=== PATIENT | male | born 1970 | race Caucasian/White ===

== ENCOUNTER 2022-03-31 12:29 | Emergency (ER) | payer OTHER, SELFPAY ==
[2022-03-31] VITALS (12 sets, daily range): BP systolic 112–156; BP diastolic 78–88; PULSE 60–79; RESP 16–27; TEMP 36.6; O2SAT 94–100; BMI 29.9
--- NOTE | 2022-03-31 12:30 | DI.RAD.S_ITS ---
PROCEDURE: XR KNEE RT 3V INDICATIONS: fall TECHNIQUE: Three views of the knee were acquired. COMPARISON: None. FINDINGS: Bones: There is a mildly depressed comminuted fracture of the lateral tibial plateau. No suspicious bony lesions. Soft tissues: Moderate joint effusion with possible fat-fluid level. No suspicious soft tissue calcifications. IMPRESSION: Mildly depressed comminuted fracture of the lateral tibial plateau. CT could be obtained for further characterization if indicated clinically. Dictated by: Ace Arias M.D. on 03/31/2022 at 12:57 Approved by: Ace Arias M.D. on 03/31/2022 at 12:58
--- NOTE | 2022-03-31 13:39 | DI.CT.S_ITS ---
PROCEDURE: CT LE RT WO CON INDICATIONS: Right tibial plateau fracture on recent X-ray TECHNIQUE: Noncontrast 1-1.5 mm axial sections acquired from the mid-patella to the proximal tibia, with coronal and sagittal reformats. COMPARISON: [facility], CR, XR KNEE RT 3V, 03/31/2022, 12:19. FINDINGS: Image quality: Excellent. Bones: As seen on left knee radiograph, there is an acute comminuted fracture involving lateral portion of proximal tibia extending to lateral tibial plateau. There is minimal lateral and anterior displacement of the fractured fragments. Up to 3 mm depression at lateral tibial plateau fracture site is also noted. No other fracture or dislocation is seen. Mild tricompartmental osteoarthritis is seen more prominent in medial femoral tibial compartment. No suspicious intraosseous lesion. Soft tissues: Moderate to large lipohemarthrosis is seen. No intra-articular loose bodies. No abnormal soft tissue calcifications. Distal quadriceps tendon and patellar tendon are grossly intact. Anterior and posterior cruciate ligaments are not well seen on this study. IMPRESSION: 1. Acute comminuted , and slightly displaced fracture involving lateral tibial plateau with up to 3 mm depression. No other fracture or dislocation. Mild tricompartmental osteoarthritis. 2. Moderate to large lipohemarthrosis. No abnormal soft tissue calcifications or intra-articular loose body. Dictated by: Yfn Leung M.D. on 03/31/2022 at 14:18 Approved by: Yfn Leung M.D. on 03/31/2022 at 14:20
--- NOTE | 2022-03-31 13:43 | ED_ITS ---
HPI - Extremity Injury (Lower) General Chief Complaint: Extremity Injury, Lower Stated Complaint: fall off boat, L knee pain Time Seen by Provider: 03/31/22 12:30 History of Present Illness HPI Narrative: Patient is a 52-year-old male who presents with right knee pain. He was at work when he fell. He had come off a ladder he was on the ground he tripped over bar. Patient states his toe got caught underneath the bar when he twisted his knee and fell. EMS initially reported that he fell about 8 ft patient says he did not fall 8 ft. There was no head injury no loss of consciousness. He is complaining only of knee pain. He received fentanyl and ketamine with EMS and is is now doing significantly better. He is actually able to flex and extend his knee without difficulty. No hip pain. Related Data Allergies Allergy/AdvReac Type Severity Reaction Status Date / Time No Known Drug Allergies Allergy Verified 03/31/22 15:49 Review of Systems Review of Systems Narrative: GENERAL: Denies chills, fatigue, malaise, fever, sweats, travel HEENT: Denies sinus pain, ear pain, sore throat, difficulty swallowing, neck dejan n RESPIRATORY: Denies dyspnea, cough, wheezing, hemoptysis, sputum. CARDIOVASCULAR: Denies chest pain, palpitations, orthopnea, edema GASTROINTESTINAL: Denies nausea, vomiting, abdominal pain, diarrhea, constipation, melena. : Denies dysuria, frequency, incontinence, hematuria, urinary retention, flank pain. MUSCULOSKELETAL: See HPI SKIN: No rash, no erythema, no pruritus NEUROLOGIC: Denies weakness, dizziness, headache, numbness, change in speech, confusion PSYCHIATRIC: No concerning psychosocial issues. 12 point review of systems is negative except for those stated above and HPI Exam Initial Vital Signs Initial Vital Signs: Vital Signs Temperature 97.8 F 03/31/22 12:35 Pulse Rate 61 03/31/22 12:35 Respiratory Rate 16 03/31/22 12:35 Blood Pressure 130/85 03/31/22 12:35 Pulse Oximetry 97 03/31/22 12:35 GENERAL: Alert well-appearing 62-year-old male no acute distress HEENT: Head atraumatic,EOMI, pupils reactive, face symmetric, moist mucous membranes NECK: No vertebral tenderness no step-off CARDIOVASCULAR: Regular rate and rhythm without murmurs, rubs or gallops. RESPIRATORY: Breath sounds equal bilaterally, no wheezes rales or rhonchi. ABDOMEN: Soft, nontender. Normoactive bowel sounds all 4 quadrants. No guarding or rebound. EXTREMITIES: Normal range of motion, no clubbing or edema. Neurovascularly intact. Pelvis stable Right lower extremity mild knee effusion however he is able to flex and extend without difficulty. Distal pedal pulse intact. NEUROLOGICAL: Alert and oriented x4.Normal gait and speech. SKIN: Warm, dry, no laceration, no petechiae, no rashes or lesions. Course Orders Ordered: ED Orders 03/31/22 12:30 XR knee RT 3V Stat 03/31/22 13:39 CT LE RT wo con Stat 03/31/22 15:43 CBC Auto Diff [Complete Blood Count AUTO DIFF] Stat CMP [Comprehensive Metabolic Panel] Stat COVID19 -Nasal RAPID/Pre-Proc Stat Discontinued Medications Diphtheria/Tetanus/Acell Pertussis (Diph,Pertuss(Acell),Tet Vac/Pf 0.5 Ml Syringe) 0.5 ml IM .ONCE ONE Stop: 03/31/22 16:01 Last Admin: 03/31/22 16:02 Dose: Not Given Documented by: JUDI Diphtheria/Tetanus/Acell Pertussis (Tet,Diph,Pertuss(Acell),Vac/Pf 0.5 Ml Syringe) 0.5 ml IM .ONCE ONE Stop: 03/31/22 16:04 Last Admin: 03/31/22 16:07 Dose: 0.5 ml Documented by: SEE Morphine Sulfate (Morphine 4 Mg/Ml Inj) 4 mg IV NOW ONE Stop: 03/31/22 14:37 Last Admin: 03/31/22 14:42 Dose: 4 mg Documented by: IRINEO Vital Signs Vital signs: Vital Signs - 8 hr 03/31/22 12:35 03/31/22 13:11 03/31/22 13:13 Temperature 97.8 F Pulse Rate 61 70 71 Respiratory Rate 16 Blood Pressure 130/85 112/78 Pulse Oximetry 97 94 97 03/31/22 13:30 03/31/22 13:48 03/31/22 14:00 Temperature Pulse Rate 68 68 62 Respiratory Rate 23 17 20 Blood Pressure 139/79 127/84 124/79 Pulse Oximetry 99 99 98 03/31/22 14:30 03/31/22 14:51 03/31/22 15:00 Temperature Pulse Rate 72 79 60 Respiratory Rate 20 26 H 23 Blood Pressure 119/81 156/87 H Pulse Oximetry 99 100 100 03/31/22 15:25 03/31/22 15:30 Temperature Pulse Rate 67 61 Respiratory Rate 27 H 16 Blood Pressure 134/88 131/78 Pulse Oximetry 100 100 MDM - Extremity Injury (Lower) Lab Data Result diagrams: 03/31/22 15:43 03/31/22 15:43 Labs: Lab Results 03/31/22 03/31/22 03/31/22 Range/Units 15:43 15:43 15:43 WBC 10.5 (4.5-11.0) X10^3/uL RBC 4.25 L (4.5-5.9) X10^6/uL Hgb 13.5 (13.5-17.5) g/dL Hct 38.7 L (41-53) % MCV 91.0 (80-100) fL MCH 31.7 (26-34) PG MCHC 34.9 (30-36) % RDW 14.5 (11.6-14.8) % Plt Count 192 (150-400) X10^3/uL Neut % (Auto) 68.4 (50-75) % Lymph % (Auto) 23.4 L (25-40) % [place] % (Auto) 6.5 (3-14) % Eos % (Auto) 1.2 L (2-4) % Baso % (Auto) 0.5 (0-2) % Neut # (Auto) 7200 H (1694-9922) /uL Lymph # (Auto) 2500 (0255-1413) /uL [place] # (Auto) 700 (0-900) /uL Eos # (Auto) 100 (0-450) /uL Baso # (Auto) 100 (0-100) /uL Sodium 140 (137-145) mmol/L Potassium 3.6 (3.4-5.1) mmol/L Chloride 110 H (98-107) mmol/L Carbon Dioxide 19 L (22-32) mmol/L BUN 14 (9-20) mg/dL Creatinine 0.99 (0.66-1.25) mg/dL Estimated GFR > 60 (>60) mL/min BUN/Creatinine Ratio 14.1 (6-22) Glucose 98 (70-100) mg/dL Calcium 8.6 (8.4-10.2) mg/dL Total Bilirubin 1.2 (0.2-1.3) mg/dL AST 26 (17-59) IU/L ALT 24 (<50) IU/L Alkaline Phosphatase 69 (38-126) U/L Total Protein 7.8 (6.3-8.2) g/dL Albumin 4.5 (3.5-5.0) g/dL Globulin 3.3 (1.7-4.1) g/dL Albumin/Globulin Ratio 1.4 (1.0-2.8) SARS-CoV-2 (PCR) Negative (Negative) Imaging Data Extremity x-ray #1: Radiologist's Impression: ?Maria Eugenia Pascal MR#: [id number] : 1970 Acct:[id number] Age/Sex: 52 / M Date of Service: 03/31/22 Loc: ED Accession Number: [id number] ?? Procedure: XR knee RT 3V Ordering Provider: Guillermina Guo D.O. PROCEDURE:? XR KNEE RT 3V ? INDICATIONS:? fall ? TECHNIQUE:? Three views of the knee were acquired.? ? COMPARISON:? None. ? FINDINGS:? ? Bones:? There is a mildly depressed comminuted fracture of the lateral tibial plateau.? No suspicious bony lesions.? ? Soft tissues:? Moderate joint effusion with possible fat-fluid level.? No suspicious soft tissue calcifications.? ? ? IMPRESSION:? Mildly depressed comminuted fracture of the lateral tibial plateau.? CT could be obtained for further characterization if indicated clinically. ? ? Dictated by: Ace Arias M.D. on 03/31/2022 at 12:57 ? CT LE: Radiologist's Impression: Signed Patient: Maria Eugenia Pascal MR#: [id number] : 1970 Acct:[id number] Age/Sex: 52 / M Date of Service: 03/31/22 Loc: ED Accession Number: [id number] ?? Procedure: CT LE RT wo con Ordering Provider: Guillermina Guo D.O. PROCEDURE:? CT LE RT WO CON ? INDICATIONS:? Right tibial plateau fracture on recent X-ray ? TECHNIQUE:? Noncontrast 1-1.5 mm axial sections acquired from the mid-patella to the proximal tibia, with coronal and sagittal reformats.? ? COMPARISON:? [facility], CR, XR KNEE RT 3V, 03/31/2022, 12:19. ? FINDINGS:? Image quality:? Excellent.? ? Bones:? As seen on left knee radiograph, there is an acute comminuted fracture involving lateral portion of proximal tibia extending to lateral tibial plateau.? There is minimal lateral and anterior displacement of the fractured fragments.? Up to 3 mm depression at lateral tibial plateau fracture site is also noted.? No other fracture or dislocation is seen.? Mild tricompartmental osteoarthritis is seen more prominent in medial femoral tibial compartment.? No suspicious intraosseous lesion. ? Soft tissues:? Moderate to large lipohemarthrosis is seen.? No intra-articular loose bodies.? No abnormal soft tissue calcifications.? Distal quadriceps tendon and patellar tendon are grossly intact.? Anterior and posterior cruciate ligaments are not well seen on this study. ? ? IMPRESSION:? 1. Acute comminuted , and slightly displaced fracture involving lateral tibial plateau with up to 3 mm depression.? No other fracture or dislocation.? Mild tricompartmental osteoarthritis. 2. Moderate to large lipohemarthrosis.? No abnormal soft tissue calcifications o r intra-articular loose body. ? ? ? Dictated by: Yfn Leung M.D. on 03/31/2022 at 14:18 ? ? [facility] Narrative Medical decision making narrative: Patient is found have lateral tibial plateau fracture on x-ray. Pain is significantly better, after medicine from EMS. CT confirms displaced and depressed tibial plateau. 1500 Dr. Camp orthopedics recommends patient be transferred will likely need to be repaired. 1530 Dr. De Jesus, [facility] trauma attending accepts patient for transfer Patient remains hemodynamically stable. Did have shaking reaction from morphine but no difficulty breathing hives or nausea, medication may have been pushed too quickly. Discharge Plan Departure Patient Disposition: [facility] Clinical Impression: Closed fracture of tibial plateau
[2022-03-31] MEDS: MORPHINE 4 MG/ML INJ IV (14:42)
[2022-03-31 15:57] LABS: Add Manual Diff / Slide Review NO; Basophils Absolute Auto 100 /uL (0-100); Basophils Percent Auto 0.5 % (0-2); Eosinophils Absolute Auto 100 /uL (0-450); Eosinophils Percent Auto 1.2 % (2-4); Hematocrit 38.7 % (41-53); Hemoglobin 13.5 g/dL (13.5-17.5); Lymphocytes Absolute Auto 2500 /uL (1100-4500); Lymphocytes Percent Auto 23.4 % (25-40); Mean Corpuscular HGB Conc 34.9 % (30-36); Mean Corpuscular Hemoglobin 31.7 PG (26-34); Monocytes Absolute Auto 700 /uL (0-900); Monocytes Percent Auto 6.5 % (3-14); Neutrophils Absolute Auto 7200 /uL (1500-7000); Neutrophils Percent Auto 68.4 % (50-75); Platelet Count 192 X10^3/uL (150-400); Red Blood Cell Count 4.25 X10^6/uL (4.5-5.9); Red Cell Distribution Width 14.5 % (11.6-14.8); White Blood Cell Count 10.5 X10^3/uL (4.5-11.0)
[2022-03-31] MEDS: TET,DIPH,PERTUSS(ACELL),VAC/PF 0.5 ML SYRINGE IM (16:07)
[2022-03-31 16:10] LABS: Alanine Aminotransferase 24 IU/L (<50); Albumin 4.5 g/dL (3.5-5.0); Albumin Globulin Ratio 1.4 (1.0-2.8); Alkaline Phosphatase 69 U/L (38-126); Aspartate Aminotransferase 26 IU/L (17-59); BUN Creatinine Ratio 14.1 (6-22); Bilirubin Total 1.2 mg/dL (0.2-1.3); Blood Urea Nitrogen 14 mg/dL (9-20); COVID19 -Nasal RAPID Negative (Negative); Calcium 8.6 mg/dL (8.4-10.2); Carbon Dioxide 19 mmol/L (22-32); Chloride 110 mmol/L (98-107); Estimated Glomerular Filt Rate > 60 mL/min (>60); Globulin 3.3 g/dL (1.7-4.1); Glucose 98 mg/dL (70-100); HEMOLYSIS < 15 (0-50); Potassium 3.6 mmol/L (3.4-5.1); Sodium 140 mmol/L (137-145); Total Protein 7.8 g/dL (6.3-8.2)
== END 2022-03-31 16:30 | disposition short-term general hospital (02) ==
PROVIDERS: Emergency Provider Emergency Medicine
DX: S82.141A Displaced bicondylar fracture of right tibia, initial encounter for closed fracture (principal); W11.XXXA Fall on and from ladder, initial encounter; X50.1XXA Overexertion from prolonged static or awkward postures, initial encounter; Y99.0 Civilian activity done for income or pay; Z20.822 Contact with and (suspected) exposure to COVID-19; Z23 Encounter for immunization
CPT/HCPCS: 73562; 73700; 80053; 85025; 87635; 90471; 96374; 99284; 99285; C9803; 90715; J2270

== ENCOUNTER → 2024-04-27 07:28 | Outpatient (CLI) | payer OTHER, SELFPAY | PROVIDERS: Referring Provider Nurse Practitioner Family; Visit Provider Nurse Practitioner Family | DX: J02.9 Acute pharyngitis, unspecified (principal) | CPT/HCPCS: 87070; 87077; 87147 ==